=== PATIENT | female | born 1940 | race Caucasian/White ===

== ENCOUNTER 2018-10-20 10:36 | Inpatient (IN) | payer MEDICAID ==
[~2018-10-20] VITALS: Ht 154.9 cm; Wt 53.1 kg
--- NOTE | 2018-10-20 10:54 | NUR ---
WAQAR Wills From [facility] "was eating/cough/aspirated also have fever" Patient transferred to [facility], on o2 satting 95%. IV line established, blood drawn done and sent to lab. Attached to the monitor.
[2018-10-20] MEDS ORDERED: MEMA10TA PO (11:00)
[2018-10-20] MEDS ORDERED: ZINC220C8 PO (11:00)
[2018-10-20] MEDS ORDERED: CALC-7 PO (11:00)
[2018-10-20] MEDS ORDERED: MULT-447 PO (11:00)
[2018-10-20] MEDS ORDERED: BISA10SU11 RC (11:00)
[2018-10-20] MEDS ORDERED: ERGO500014 PO (11:00)
[2018-10-20] MEDS ORDERED: ACET-868 PO (11:00)
[2018-10-20] MEDS ORDERED: NA P133E RC (11:00)
[2018-10-20] MEDS ORDERED: DOCU-141 PO (11:00)
[2018-10-20] MEDS ORDERED: ASCO500T9 PO (11:00)
[2018-10-20] MEDS ORDERED: ACET-2605 PO (11:00)
[2018-10-20] MEDS ORDERED: MAGN400O6 PO ×2 (11:00)
[2018-10-20] MEDS ORDERED: AMIN30LI2 PO (11:00)
[2018-10-20] MEDS ORDERED: RIVA10TA PO (11:00)
[2018-10-20 11:09] LABS: BASOPHILS # (AUTO) 0.2 /CMM (0.0-0.2); BASOPHILS % (AUTO) 1.2 % (0.0-2.0); EOSINOPHILS % (AUTO) 0.5 % (0.0-6.0); HEMATOCRIT 42 % (33-45); HEMOGLOBIN 13.1 g/dL (11.5-14.8); LYMPHOCYTES # (AUTO) 1.8 /CMM (0.8-4.8); LYMPHOCYTES % (AUTO) 14.6 % (20.0-44.0); MEAN CORPUSCULAR HGB CONC 32 g/dl (31.0-36.0); MEAN CORPUSCULAR VOLUME 90 fL (82-100); MONOCYTES # (AUTO) 0.7 /CMM (0.1-1.30); MONOCYTES % (AUTO) 5.2 % (2.0-12.0); NEUTROPHILS # (AUTO) 9.9 /CMM (1.8-8.9); NEUTROPHILS % (AUTO) 78.5 % (43.0-81.0); PLATELET COUNT (AUTO) 316 /CMM (150-450); RED BLOOD CELL COUNT(AUTO) 4.63 MIL/uL (4.0-5.2); WHITE BLOOD COUNT (AUTO) 12.6 K/uL (4.3-11.0)
[2018-10-20 11:10] LABS: APPEARANCE,URINE CLOUDY (CLEAR); BILIRUBIN,URINE Negative (NEGATIVE); BLOOD, URINE Small Ery/uL (NEGATIVE); COLOR,URINE Yellow (YELLOW); KETONES,URINE Negative (NEGATIVE); LEUKOCYTE ESTERASE ,URINE Negative (NEGATIVE); NITRITE, URINE Positive (NEGATIVE); PH,URINE 5.5 (5.0-8.0); PROTEIN,URINE Trace mg/dl (NEGATIVE); UGLUCOSE Negative (NEGATIVE); UROBILINOGEN,URINE 0.2 EU/dL (0.2)
[2018-10-20 11:19] LABS: CALCIUM, SERUM 8.9 mg/dL (8.5-10.1); CARBON DIOXIDE 25 mmol/L (21-32); CHLORIDE 120 mmol/L (98-107); CREATININE 0.8 mg/dL (0.6-1.3); GLUCOSE 159 mg/dL (74-106); SODIUM SERUM 155 mmol/L (136-145); UREA NITROGEN, BLOOD 25 mg/dL (7-18)
[2018-10-20 11:25] LABS: ALANINE AMINOTRANSFERASE 64 U/L (12-78); ALBUMIN 2.3 g/dL (3.4-5.0); ALKALINE PHOSPHATASE 94 U/L (46-116); ASPARTATE AMINOTRANSFERASE 22 U/L (15-37); BILIRUBIN,DIRECT 0.1 mg/dL (0.0-0.2); BILIRUBIN,TOTAL 0.2 mg/dL (0.2-1.0); TOTAL PROTEIN, SERUM 6.5 g/dL (6.4-8.2)
[2018-10-20 11:26] LABS: BACTERIA,URINE 3+ /HPF (None Seen); SQUAMOUS EPITHELIAL CELL,UR Few /HPF (None Seen); WBC,URINE TOO NUMEROUS TO COUN /HPF (0-3)
[2018-10-20] MEDS ORDERED: IV 1/2NS 1000 ML 1,000 ML IV ONE ×2 (11:28→12:28)
[2018-10-20] MEDS ORDERED: IV NS 0.9% 1,000 ML BAG IV ONE (11:30)
--- NOTE | 2018-10-20 11:50 | NUR ---
CALLED HOUSE SUP FOR TELE BED
--- NOTE | 2018-10-20 11:58 | NUR ---
TELE BED 308-
[2018-10-20] MEDS ORDERED: ACETAMINOPHEN 325 MG TABLET PO PRN (12:00)
[2018-10-20] MEDS ORDERED: HYDROCODONE/APAP 5/325MG 1 EACH TABLET PO PRN (12:00)
[2018-10-20] MEDS ORDERED: MAG HYDROX/AL HYDROX/SIMETH 30 ML UDC PO PRN (12:00)
[2018-10-20] MEDS ORDERED: MAGNESIUM HYDROXIDE 30 ML UDC PO PRN (12:00)
[2018-10-20] MEDS ORDERED: MORPHINE SULFATE INJ 2 MG/ML DISP.SYRIN IV PRN (12:00)
[2018-10-20] MEDS ORDERED: ONDANSETRON HCL/PF 4 MG/2 ML VIAL IVP PRN (12:00)
[2018-10-20] MEDS ORDERED: VANCOMYCIN 1 GM in IV D5W 250 ML IV ONE (12:00)
[2018-10-20] MEDS ORDERED: PIPERACILLIN /TAZOBACTAM 3.375 G in IV D5W 50 ML IV ONE (12:00)
[2018-10-20] MEDS ORDERED: TEMAZEPAM 15 MG CAPSULE PO PRN (12:00)
[2018-10-20] MEDS ORDERED: FEE PK DOSING 1 MIN EA MC ONE (12:17)
--- NOTE | 2018-10-20 12:17 | NUR ---
REPORT GIVEN TO REJI PARSONS FOR CARLOS ENRIQUE. JOHN GUILLEN AT BEDSIDE.
--- NOTE | 2018-10-20 12:48 | NUR ---
PATIENT TRANSFERRED TO ROOM 308-2 VIA ACLS PROTOCOL. NO DISTRESS NOTED.
[2018-10-20] MEDS ORDERED: VANCOMYCIN 500 MG in IV D5W 100 ML IV SCH (13:00)
[2018-10-20 13:06] VITALS: BP 100/57
[2018-10-20 13:30] VITALS: BP 100/57
[2018-10-20] MEDS: PIPERACILLIN /TAZOBACTAM 3.375 G in IV D5W 50 ML IV SCH ×2 (14:10→20:00)
--- NOTE | 2018-10-20 14:45 | NUR ---
SOLDER SPRAYERSENIOR CONTROL SYSTEMS ENGINEER NOTES RECEIVED P FROM ER DEPT VIA STRETCHER WITH 2 NURSE ASSIST. PT ON SUPPLEMENTARY OXYGEN AT 2L VIA NC WITH NO ACUTE RESPIRATORY DISTRESS NOTED. PT A/O X1-2, PRIMARY LANGUAGE IS FARSI AND CROATIAN; CAN UNDERSTAND AND RESPOND A LITTLE PORTUGUESE. PT ON TELEMONITORING WITH SR 91. DAUGHTER/ILYA PRESENT AT BEDSIDE. PT AND DAUGHTER PROVIDED INFORMATION ON ADMISSION. VS TAKEN AND RECORDED STABLE. PIV TO RIGHT HAND AND LEFT WRIST G18, BOTH FLUSHED WITH NS, INTACT AND OPERATIONAL. RECEIVED PT EARLIER HAS ONGOING VANCO TO R HAND, NO INFILTRATION NOTED. SKIN ASSESSED, INTACT. RFA HAS A KELOID/REDDISH SCAR, WOUND CONSULT PLACED. ADMISSION ORDERS PLACED BY HOSPITALIST/NN. PT KEPT COMFORTABLE. PT'S BED IN LOWEST, LOCKED POSITION WITH SR X3. WILL CONTINUE PLAN OF CARE.
[2018-10-20] MEDS: IV NS 0.9% 1,000 ML IV PRN (15:17)
--- NOTE | 2018-10-20 15:20 | NUR ---
WOODWORKER NOTES RECEIVED CALL FROM LAB REGARDING CH LACTIC ACID OF 3.1. ADMITTING HOSPITALIST/DNP/NN MADE AWARE, WITH NO NEW ORDERS NOTED. PT ON NS AT 100ML/HR. WILL CONTINUE TO MONITOR.
[2018-10-20 16:10] VITALS: BP 102/62
[2018-10-20] MEDS: LACTOBACILLUS RHAMNOSUS GG 1 EACH CAP.SPRINK PO SCH (16:57)
--- NOTE | 2018-10-20 18:35 | NUR ---
PRIOR AUTHORIZATION NURSE CLOSING NOTES PT A/O X1-2, PRIMARY LANGUAGE IS FARSI AND PALAUAN; CAN UNDERSTAND AND RESPOND A LITTLE WELSH. PT ON SUPPLEMENTARY OXYGEN AT 2L VIA NC WITH NO ACUTE RESPIRATORY DISTRESS NOTED. PT ON TELEMONITORING WITH ST 103, PT CALM AND ASYMPTOMATIC, DAUGHTER AT BEDSIDE. IVF NS AT 100ML/HR TO RIGHT HAND, INTACT AND INFUSING WELL. PIV TO LEFT WRIST G18, FLUSHED WITH NS, INTACT AND OPERATIONAL. PT KEPT COMFORTABLE. ALL NEEDS AND CARE PROVIDED. PT'S BED IN LOWEST, LOCKED POSITION WITH SR X3. WILL ENDORSE TO INCOMING ARCHITECTURAL EXAMINER FOR CARLOS ENRIQUE.
--- NOTE | 2018-10-20 19:31 | NUR ---
TELE/RN OPENING NOTES RECEIVED PATIETN IN BED, RESTING IN BED, RESPIRATIONS EVEN AND UNLABORED, SKIN WARM TO TOUCH, ON OXYGEN VIA NC AT 2L. RECEIVED ENDORSEMENT FROM AM RN FOR CARLOS ENRIQUE. IV INFUSING IVF AT 100 CC/HR, IV SITE ON LEFT WRIST, BED LOCKED, CALL LIGHTS WITHIN REACH. WILL MONITOR. TELE MONITOR READING AT [facility]
[2018-10-20 19:44] VITALS: BP 101/59
[2018-10-20 20:00] VITALS: BP 101/59
[2018-10-20] MEDS: FAMOTIDINE/PF INJ 20 MG/2 ML VIAL IV SCH (20:59)
[2018-10-21] VITALS: BP 119/66
--- NOTE | 2018-10-21 | NUR ---
tele/rn notes PATIENTEMPERATURE ELEVATED AT 99.9 DEG F, EILL MONITOR, TYLENOL 650 MG PO GIVEN WILL MONITOR, ICE COMPRESS PROVIDED,OFFED FLUIDS. WILL MONITOR.
[2018-10-21] MEDS: VANCOMYCIN 500 MG in IV D5W 100 ML IV SCH ×2 (00:04→13:11)
[2018-10-21] MEDS: PIPERACILLIN /TAZOBACTAM 3.375 G in IV D5W 50 ML IV SCH ×4 (01:07→20:12)
--- NOTE | 2018-10-21 01:26 | NUR ---
TELE/RN NOTES PULSE RATE AT 87, FOLLOW UP HOME MEDICATION TO MD FOR DEMENTIA AND OTHER MEDICATIONS,WILL FOLLOW UO
[2018-10-21 04:00] VITALS: BP 127/78
[2018-10-21] MEDS: IV NS 0.9% 1,000 ML IV PRN ×2 (04:18→16:28)
--- NOTE | 2018-10-21 04:27 | NUR ---
MS/RN NOTES PATIENT LATST TEMPERATURE AT 98, 4 DEG F, RESTING COMFORTABLY IN BED, NO FEVER.
--- NOTE | 2018-10-21 05:17 | NUR ---
MS/RN NOTES MD ARITA WAS MADE AWARE THAT PATIENT MEDICATION WERE REPORTED BUT HAS NOT BEEN RECONCILED UPON ADMISSION WITH ORDER TO FOLLOW UP IN MORNING.
[2018-10-21 06:24] LABS: BASOPHILS % (AUTO) 0.4 % (0.0-2.0); EOSINOPHILS % (AUTO) 2.3 % (0.0-6.0); HEMATOCRIT 37 % (33-45); HEMOGLOBIN 11.8 g/dL (11.5-14.8); LYMPHOCYTES # (AUTO) 2.4 /CMM (0.8-4.8); LYMPHOCYTES % (AUTO) 20.3 % (20.0-44.0); MEAN CORPUSCULAR HGB CONC 32 g/dl (31.0-36.0); MEAN CORPUSCULAR VOLUME 90 fL (82-100); MONOCYTES # (AUTO) 0.6 /CMM (0.1-1.30); MONOCYTES % (AUTO) 5.2 % (2.0-12.0); NEUTROPHILS # (AUTO) 8.4 /CMM (1.8-8.9); NEUTROPHILS % (AUTO) 71.8 % (43.0-81.0); PLATELET COUNT (AUTO) 205 /CMM (150-450); RED BLOOD CELL COUNT(AUTO) 4.17 MIL/uL (4.0-5.2); WHITE BLOOD COUNT (AUTO) 11.7 K/uL (4.3-11.0)
--- NOTE | 2018-10-21 06:30 | NUR ---
TELE/RN NOTES PATIENT SLEPT FEW HOURS, ON OXYGEN VIA NASAL CANULA WITH [employer] CONTACT, SPEAKS PORTUGUESE, FAMILY INVOLVE, RESPIRATIONS EVEN AND UNLABORED ,WILL ENDORSE TO AM RN FOR CARLOS ENRIQUE. BED LOCKED, CALL LIGHTS WITHIN CARITO WILL MONITOR.IV SITE ON RIGHT HAND WITH NO S/S OF INFILTRATION. NO GUARDING OR GRIMACE.
[2018-10-21 06:49] LABS: CALCIUM, SERUM 8.3 mg/dL (8.5-10.1); CREATININE 0.7 mg/dL (0.6-1.3); MAGNESIUM 1.9 mg/dL (1.8-2.4); PHOSPHORUS 3.4 mg/dL (2.5-4.9); POTASSIUM 3.5 mmol/L (3.5-5.1)
--- NOTE | 2018-10-21 07:29 | NUR ---
PROGRAMMING COORDINATOR OPENING NOTES Patient received on nasal cannula 2L o2, no sob noted, n os/s of pain. Patient remains on telemetry at this time with SR 80's. Right hand IV 20 with IV NS 100 mL per hour infusing. Bed at the lowest setting, call light within reach.
[2018-10-21 08:00] VITALS: BP 136/82
[2018-10-21] MEDS: FAMOTIDINE/PF INJ 20 MG/2 ML VIAL IV SCH ×2 (08:46→20:12)
[2018-10-21] MEDS: LACTOBACILLUS RHAMNOSUS GG 1 EACH CAP.SPRINK PO SCH ×2 (08:47→17:08)
[2018-10-21] MEDS ORDERED: BISACODYL SUPP (10 MG) 10 MG/SUPP.RECT SUPP.RECT RC PRN (11:30)
[2018-10-21] MEDS ORDERED: NA PHOS,M-B/NA PHOS,DI-BA 1 EA ENEMA RC PRN (11:30)
[2018-10-21] MEDS: DOCUSATE SODIUM 100 MG CAPSULE PO SCH (11:52)
[2018-10-21] MEDS: ASCORBIC ACID 500 MG TABLET PO SCH (11:52)
--- NOTE | 2018-10-21 15:14 | NUR ---
RN NOTES Report given to Ade MONACO
[2018-10-21 16:00] VITALS: BP 139/78
[2018-10-21] MEDS: MEMANTINE HCL 5 MG TABLET PO SCH (17:08)
[2018-10-21] MEDS: CALCIUM CARB 250MG /VITAMIN D 1 UDTAB PO SCH (17:08)
[2018-10-21] MEDS: RIVAROXABAN 10 MG TABLET PO SCH (17:09)
--- NOTE | 2018-10-21 18:50 | NUR ---
M/S RN NOTES PATIENT AWAKE, LYING IN BED, NO RESPIRATORY DISTRESS NOTED, ON NASAL CANULA O2 AT 2L. PATIENT WITH NO C/O PAIN. PATIENT ON IV NS RUNNING AT 100ML/HR ON THE RT HAND, INTACT AND PATENT. PATIENT'S NEEDS ATTENDED. BED ON LOWEST LOCKED POSITION, CALL LIGHT WITHIN REACH. WILL ENDORSE TO ONCOMING NURSE.
--- NOTE | 2018-10-21 19:52 | NUR ---
RN MS OPENING NOTES RECEIVED PATIENT IN BED AWAKE. NOT ANSWERING QUESTIONS. ONLY STARES. BREATHING EVEN AND UNLABORED. NO SOB NOTED. ON 2LPM VIA NC. NO S/S OF PAIN OR DISCOMFORT. NO FACIAL GRIMACING. IV ON RIGHT HAND INTACT AND PATENT WITH IVF INFUSING. SKIN DRY AND WARM TO TOUCH. AFEBRILE. ALL OTHER NEEDS ATTENDED TO. SAFETY MEASURES IN PLACE. CALL LIGHT WITHIN REACH. WILL CONTINUE TO MONITOR.
[2018-10-21 20:00] VITALS: BP 146/73
--- NOTE | 2018-10-21 21:31 | NUR ---
RN MS NOTES SPOKE WITH DAUGHTERS BERLIN AND TIA, AND PER DAUGHTERS, THEY WOULD LIKE PATIENT TO BE FULL CODE AND NOT DNI/DNR, BUT THE ONLY THING THEY DON'T WANT IS A FEEDING TUBE. INFORMED DAUGHTERS THAT WE CAN CONSULT A WHEEL MILL OPERATOR FOR A NEW POLST FORM TO INDICATE FULL CODE - DAUGHTERS AGREED. CODE STATUS CHANGED TO FULL CODE WITH ANOTHER RN VERIFICATION. ORDER FOR WHEEL MILL OPERATOR CONSULT NOTED AND CARRIED OUT.
[2018-10-21] MEDS: VANCOMYCIN 0.75 GM in IV D5W 250 ML IV SCH (23:54)
[2018-10-22] MEDS: PIPERACILLIN /TAZOBACTAM 3.375 G in IV D5W 50 ML IV SCH ×4 (02:16→20:17)
[2018-10-22] MEDS: IV NS 0.9% 1,000 ML IV PRN ×2 (04:22→21:31)
[2018-10-22 06:41] LABS: BASOPHILS % (AUTO) 0.5 % (0.0-2.0); CALCIUM, SERUM 8.3 mg/dL (8.5-10.1); CREATININE 0.6 mg/dL (0.6-1.3); EOSINOPHILS % (AUTO) 3.6 % (0.0-6.0); HEMATOCRIT 34 % (33-45); LYMPHOCYTES # (AUTO) 1.6 /CMM (0.8-4.8); LYMPHOCYTES % (AUTO) 16.3 % (20.0-44.0); MEAN CORPUSCULAR HGB CONC 32 g/dl (31.0-36.0); MEAN CORPUSCULAR VOLUME 89 fL (82-100); MONOCYTES # (AUTO) 0.6 /CMM (0.1-1.30); MONOCYTES % (AUTO) 6.4 % (2.0-12.0); NEUTROPHILS # (AUTO) 7.3 /CMM (1.8-8.9); NEUTROPHILS % (AUTO) 73.2 % (43.0-81.0); PLATELET COUNT (AUTO) 191 /CMM (150-450); RED BLOOD CELL COUNT(AUTO) 3.84 MIL/uL (4.0-5.2); WHITE BLOOD COUNT (AUTO) 9.9 K/uL (4.3-11.0)
[2018-10-22 06:45] LABS: POTASSIUM 2.8 mmol/L (3.5-5.1)
--- NOTE | 2018-10-22 06:45 | NUR ---
RN MS NOTES RECEIVED POTASSIUM LEVEL OF 2.8. PREVIOUS RESULT WAS 3.5. PAGED DR. ARITA. WAITING FOR CALL BACK. WILL CONTINUE TO MONITOR.
--- NOTE | 2018-10-22 06:51 | NUR ---
RN MS NOTES DR. ARITA PAGED BACK AND MADE AWARE OF POTASSIUM RESULT. PER DR. ARITA, IT WAS A BIG JUMP FROM 3.5 TO 2.8 WITH ORDERS TO CHECK POTASSIUM LEVEL AGAIN. ORDER NOTED AND CARRIED OUT.
--- NOTE | 2018-10-22 07:36 | NUR ---
RN MS CLOSING NOTES PATIENT RESTING IN BED. NO ACUTE CHANGES THROUGHOUT SHIFT. BREATHING EVEN AND UNLABORED. NO SOB NOTED. ON 2LPM VIA NC. NO S/S OF PAIN OR DISCOMFORT. NO FACIAL GRIMACING. IV ON RIGHT HAND INTACT AND PATENT WITH IVF INFUSING. KEPT CLEAN DRY AND COMFORTABLE. ENDORSED TO DAY NURSE REGARDING POTASSIUM LEVEL AND MD'S ORDER. ALL OTHER NEEDS ATTENDED TO. KEPT CLEAN DRY AND COMFORTABLE. SAFETY MEASURES IN PLACE. CALL LIGHT WITHIN REACH. WILL ENDORSE TO ONCOMING NURSE FOR CARLOS ENRIQUE.
--- NOTE | 2018-10-22 07:44 | NUR ---
MS RN OPENING NOTES RECEIVED PATIENT IN BED AWAKE WITH NO S/S OF DISTRESS OBSERVED. BREATHING REGULAR AND UNLABORED, NO SOB WITH OXYGEN AT 2L/MIN VIA NASAL CANNULA. MAINTAINED ON ASPIRATION PRECAUTION WITH HEAD OF THE BED ELEVATED. IV LINES ON LEFT AND RIGHT HAND G18 PATENT AND INTACT WITH NO BLEEDING AND S/S OF INFILTRATION/INFECTION NOTED, LEFT IV LINE INFUSING WELL. WILL FOLLOW-UP LATEST POTASSIUM LEVEL, WOUND CONSULT AND BIG DATA ENGINEER REGARDING CHANGE IN POLST. CALL LIGHT WITHIN REACH, BED LOW AND LOCKED. KEPT CLEAN AND DRY. CONTINUOUSLY MONITORED.
[2018-10-22 08:00] VITALS: BP 140/70
--- NOTE | 2018-10-22 09:00 | NUR ---
MS RN NOTES SEEN BY WITH ORDERS TO START POTASSIUM 20mEQ TABLET BY MOUTH GIVE EVERY HOUR [id number] NOTED AND CARRIED OUT.
[2018-10-22] MEDS: ZINC SULFATE 220 MG CAPSULE PO SCH (09:27)
[2018-10-22] MEDS: DOCUSATE SODIUM 100 MG CAPSULE PO SCH (09:27)
[2018-10-22] MEDS: LACTOBACILLUS RHAMNOSUS GG 1 EACH CAP.SPRINK PO SCH ×2 (09:27→16:53)
[2018-10-22] MEDS: CALCIUM CARB 250MG /VITAMIN D 1 UDTAB PO SCH ×2 (09:27→16:53)
[2018-10-22] MEDS: MEMANTINE HCL 5 MG TABLET PO SCH ×2 (09:27→16:53)
[2018-10-22] MEDS: ASCORBIC ACID 500 MG TABLET PO SCH (09:27)
[2018-10-22] MEDS: FAMOTIDINE/PF INJ 20 MG/2 ML VIAL IV SCH ×2 (09:27→21:01)
[2018-10-22] MEDS: MULTIVITAMINS,THERAGRAN 1 UDTAB TABLET PO SCH (09:27)
[2018-10-22] MEDS: PROSOURCE / PROSTAT (PYXIS) 30 ML UDC PO SCH (09:28)
[2018-10-22] MEDS: POTASSIUM CHLORIDE 20 MEQ TAB.PRT.SR PO SCH ×3 (09:28→11:38)
--- NOTE | 2018-10-22 10:10 | NUR ---
WOUND CARE CONSULT: PT PRESENTS WITH DEEP TISSUE INJURIES (INTACT) TO RT FOOT AND HEEL, REDNESS TO LEFT LATERAL ANKLE, PRESENT ON ADMISSION. RECOMMEND DPM CONSULT. DR LINCOLN AWARE OF CONSULT REQUEST. ALL SKIN PROTECTION RECOMMENDATIONS MADE AND DISCUSSED WITH NURSING STAFF. WILL SEE PRN. EUGENE IN AGREEMENT WITH PLAN OF CARE. Addendum: 10/22/18 at 1013 by RIANA MARLEY WNDNU Amended: Links added.
[2018-10-22] MEDS ORDERED: Z GUARD REMEDY 2 OZ OINT TP PRN (10:30)
[2018-10-22] MEDS: VANCOMYCIN 0.75 GM in IV D5W 250 ML IV SCH ×2 (11:09→22:26)
[2018-10-22] MEDS: Z GUARD REMEDY 2 OZ OINT TP SCH (11:09)
[2018-10-22 16:00] VITALS: BP 128/75
[2018-10-22] MEDS: RIVAROXABAN 10 MG TABLET PO SCH (16:55)
--- NOTE | 2018-10-22 18:56 | NUR ---
MS RN CLOSING NOTES PATIENT IN BED AWAKE, NON-VERBAL. AFEBRILE WTIH NO S/S OF DISTRESS OBSERVED. BREATHING REGULAR AND UNLABORED WITH OXYGEN AT 2L/MIN VIA NASAL CANNULA, LATEST SPO2 97%. MAINTAINED ON SEMI FOWLERS POSITION WITH BED LOW AND LOCKED. NO S/S OF PAIN/DISCOMFORT SEEN WITHIN THE SHIFT. CONTINOUSLY MONITORED FOR S/S OF HYPO/HYPERKALEMIA WITH NO MUSCLE TWITCHING OR EPISODE OF NAUSE/VOMOTING NOTED. NEW IV LINE REINSERTED IN LEFT FOREARM G20, INFUSING WELL. SEEN BY WOUND CARE NURSE, REPOSITIONED EVERY 2HRS. KEPT CLEAN AND DRY. WILL ENDORSE TO NOC SHIFT FOR CONTINUITY OF CARE.
--- NOTE | 2018-10-22 19:38 | NUR ---
RN MS OPENING NOTES RECEIVED PATIENT IN BED AWAKE. NONVERBAL. ONLY STARES. BREATHING EVEN AND UNLABORED. NO SOB NOTED. ON 2LPM VIA NC. NO S/S OF PAIN OR DISCOMFORT. NO FACIAL GRIMACING. IV ON LEFT FOREARM INTACT AND PATENT WITH IVF INFUSING. SKIN DRY AND WARM TO TOUCH. AFEBRILE. ALL OTHER NEEDS ATTENDED TO. SAFETY MEASURES IN PLACE. CALL LIGHT WITHIN REACH. WILL CONTINUE TO MONITOR.
[2018-10-22 20:48] VITALS: BP 118/77
--- NOTE | 2018-10-22 22:52 | NUR ---
TRANSFER OF CARE RECEIVED PATIENT FROM JAQUELINE SAHNI AT 2251. PATIENT IS ASLEEP, RESTING COMFORTABLY EASILY AROUSABLE TO VOICE. ON O2 LPM VIA NASAL CANNULA. NO SIGNS OF RESPIRATORY DISTRESS. NO SIGNS OF SHORTNESS OF BREATH. MAINTAINING SEMI FOWLERS POSITION. NO SIGNS OF FACIAL GRIMACING INDICATING PAIN OR DISCOMFORT AT THIS TIME. NO SIGNS OF HYPOKALEMIA NOTED. IV SITE LFA #20G INTACT AND PATENT, INFUSING WELL. WILL REPOSITION EVERY 2 HOURS. SAFETY PRECAUTIONS IMPLEMENTED; CALL LIGHT WITHIN REACH, BED LOWEST POSITION, BED LOCKED, SIDE RAILS UP X2. WILL CONTINUE TO MONITOR.
--- NOTE | 2018-10-22 22:58 | NUR ---
RN MS NOTES CARLOS ENRIQUE GIVEN TO JAQUELINE OLIVEIRA. PATIENT RESTING IN BED. IN NO DISTRESS. SAFETY MEASURES IN PLACE. CALL LIGHT WITHIN REACH.
[2018-10-23] MEDS: PIPERACILLIN /TAZOBACTAM 3.375 G in IV D5W 50 ML IV SCH ×3 (01:53→15:32)
[2018-10-23 06:10] LABS: BASOPHILS % (AUTO) 0.4 % (0.0-2.0); EOSINOPHILS % (AUTO) 3.8 % (0.0-6.0); HEMATOCRIT 32 % (33-45); HEMOGLOBIN 10.8 g/dL (11.5-14.8); LYMPHOCYTES # (AUTO) 1.7 /CMM (0.8-4.8); LYMPHOCYTES % (AUTO) 25.4 % (20.0-44.0); MEAN CORPUSCULAR HGB CONC 33 g/dl (31.0-36.0); MEAN CORPUSCULAR VOLUME 87 fL (82-100); MONOCYTES # (AUTO) 0.6 /CMM (0.1-1.30); MONOCYTES % (AUTO) 8.2 % (2.0-12.0); NEUTROPHILS # (AUTO) 4.3 /CMM (1.8-8.9); NEUTROPHILS % (AUTO) 62.2 % (43.0-81.0); PLATELET COUNT (AUTO) 184 /CMM (150-450); RED BLOOD CELL COUNT(AUTO) 3.74 MIL/uL (4.0-5.2); WHITE BLOOD COUNT (AUTO) 6.8 K/uL (4.3-11.0)
[2018-10-23 06:21] LABS: CALCIUM, SERUM 8.5 mg/dL (8.5-10.1); CARBON DIOXIDE 26 mmol/L (21-32); CHLORIDE 110 mmol/L (98-107); CREATININE 0.5 mg/dL (0.6-1.3); GLUCOSE 95 mg/dL (74-106); MAGNESIUM 1.9 mg/dL (1.8-2.4); PHOSPHORUS 2.9 mg/dL (2.5-4.9); POTASSIUM 3.1 mmol/L (3.5-5.1); SODIUM SERUM 146 mmol/L (136-145); UREA NITROGEN, BLOOD 5 mg/dL (7-18)
--- NOTE | 2018-10-23 06:56 | NUR ---
RN CLOSING NOTES PATIENT CURRENTLY RESTING IN BED, COMFORTABLY. NO ACUTE CHANGES SINCE TRANSFER OF CARE. NO SIGNS OF RESPIRATORY DISTRESS. NO SHORTNESS OF BREATH NOTED. PATIENT REMAINS ON 2LPM O2 VIA NASAL CANNULA. NO SIGNS OF FACIAL GRIMACING INDICATING PAIN OR DISCOMFORT AT THIS TIME. AFEBRILE. IV SITE LEFT FOREARM #20G INTACT AND PATENT WITH IVF INFUSING WELL. PATIENT KEPT CLEAN, DRY AND COMFORTABLE. PATIENT TURNED EVERY 2 HOURS. ALL NEEDS ATTENDED TO AT THIS TIME. SAFETY PRECAUTIONS IMPLEMENTED; CALL LIGHT WITHIN REACH, BED LOWEST POSITION, BED LOCKED, SIDE RAILS UP X2. WILL ENDORSE TO DAY NURSE FOR CONTINUITY OF CARE.
--- NOTE | 2018-10-23 07:35 | NUR ---
MS RN OPENING NOTES RECEIVED PATIENT IN BED AWAKE WITH NO S/S OF DISTRESS OBSERVED. BREATHING REGULAR AND UNLABORED, NO SOB WITH OXYGEN AT 2L/MIN VIA NASAL CANNULA. MAINTAINED ON ASPIRATION PRECAUTION WITH HEAD OF THE BED ELEVATED. IV LINES ON LEFT FOREARM INTACT AND PATENT WITH NO BLEEDING AND S/S OF INFILTRATION/INFECTION NOTED, INFUSING WELL. WILL FOLLOW-UP LATEST POTASSIUM LEVEL. CALL LIGHT WITHIN REACH, BED LOW AND LOCKED. KEPT CLEAN AND DRY. CONTINUOUSLY MONITORED.
[2018-10-23 08:00] VITALS: BP 120/69
[2018-10-23] MEDS ORDERED: POTASSIUM CHLORIDE 20 MEQ TAB.PRT.SR PO ONE (08:30)
[2018-10-23] MEDS: MULTIVITAMINS,THERAGRAN 1 UDTAB TABLET PO SCH (08:30)
[2018-10-23] MEDS: FAMOTIDINE/PF INJ 20 MG/2 ML VIAL IV SCH ×2 (08:30→20:19)
[2018-10-23] MEDS: CALCIUM CARB 250MG /VITAMIN D 1 UDTAB PO SCH ×2 (08:31→16:39)
[2018-10-23] MEDS: ZINC SULFATE 220 MG CAPSULE PO SCH (08:31)
[2018-10-23] MEDS: MEMANTINE HCL 5 MG TABLET PO SCH ×2 (08:31→16:39)
[2018-10-23] MEDS: LACTOBACILLUS RHAMNOSUS GG 1 EACH CAP.SPRINK PO SCH ×2 (08:31→16:38)
[2018-10-23] MEDS: ASCORBIC ACID 500 MG TABLET PO SCH (08:31)
[2018-10-23] MEDS: PROSOURCE / PROSTAT (PYXIS) 30 ML UDC PO SCH (08:33)
[2018-10-23] MEDS: Z GUARD REMEDY 2 OZ OINT TP SCH (08:33)
[2018-10-23] MEDS: DOCUSATE SODIUM 100 MG CAPSULE PO SCH (08:33)
[2018-10-23] MEDS: VANCOMYCIN 0.75 GM in IV D5W 250 ML IV SCH ×2 (11:23→22:52)
[2018-10-23] MEDS: IV NS 0.9% 1,000 ML IV PRN (13:04)
[2018-10-23 16:00] VITALS: BP 117/58
[2018-10-23] MEDS: RIVAROXABAN 10 MG TABLET PO SCH (16:38)
--- NOTE | 2018-10-23 18:34 | NUR ---
MS RN CLOSING NOTES PATIENT IN BED AWAKE, NON-VERBAL. AFEBRILE WITH NO S/S OF DISTRESS OBSERVED. BREATHING REGULAR AND UNLABORED WITH LATEST SPO2 98%. MAINTAINED ON SEMI FOWLERS POSITION WITH BED LOW AND LOCKED. NO S/S OF PAIN/DISCOMFORT SEEN WITHIN THE SHIFT. CONTINUOUSLY MONITORED FOR S/S OF HYPO/HYPERKALEMIA WITH NO MUSCLE TWITCHING OR EPISODE OF NAUSEA/VOMITING NOTED. IV LINE ON LEFT FOREARM G20, INFUSING WELL. REPOSITIONED EVERY 2HRS. KEPT CLEAN AND DRY. WILL ENDORSE TO NOC SHIFT FOR CONTINUITY OF CARE.
--- NOTE | 2018-10-23 19:15 | NUR ---
MS RN NOTES RECEIVED PT IN BED AWAKE AND NON-VERBAL WITH FAMILY AT BEDSIDE. RESPIRATIONS EVEN AND UNLABORED WITH NO S/S OF ACUTE DISTRESS OR SOB NOTED. NO S/S OF PAIN NOTED AT THIS TIME. PT WITH LFA #20G RUNNING NS@100ML/HR, TOLERATING WELL. SAFETY MEASURES IN PLACE WITH BED IN LOWEST LOCKED POSITION WITH SIDE RAILS UP X2. CALL LIGHT WITHIN REACH. WILL CONTINUE TO MONITOR.
[2018-10-23 20:00] VITALS: BP 121/60
[2018-10-23] MEDS: CEPHALEXIN MONOHYDRATE 250 MG CAPSULE PO SCH (20:19)
[2018-10-24] MEDS: IV NS 0.9% 1,000 ML IV PRN ×2 (01:12→12:01)
[2018-10-24] MEDS: CEPHALEXIN MONOHYDRATE 250 MG CAPSULE PO SCH ×3 (05:12→20:47)
--- NOTE | 2018-10-24 07:30 | NUR ---
MS RN NOTES PT IN BED AWAKE AND NON-VERBAL. RESPIRATIONS EVEN AND UNLABORED WITH NO S/S OF ACUTE DISTRESS OR SOB NOTED THROUGHOUT SHIFT. NO S/S OF PAIN NOTED AT THIS TIME. PT KEPT CLEAN, DRY, AND COMFORTABLE. TURNED PT Q2 HRS THROUGHOUT SHIFT. PT WITH LFA #20G RUNNING NS@100ML/HR, TOLERATING WELL. SAFETY MEASURES IN PLACE WITH BED IN LOWEST LOCKED POSITION WITH SIDE RAILS UP X2. CALL LIGHT WITHIN REACH. WILL ENDORSE TO ONCOMING NURSE FOR CARLOS ENRIQUE.
--- NOTE | 2018-10-24 07:30 | NUR ---
RN MS NOTES PT IN BED, AWAKE, ALERT, NO SIGN OF PAIN OR DISTRESS, CALL LIGHT WITHIN REACH, ASSISTED WITH MEALS, KEPT WARM AND COMFORTABLE IN BED.
[2018-10-24 07:39] LABS: CALCIUM, SERUM 7.7 mg/dL (8.5-10.1); CARBON DIOXIDE 24 mmol/L (21-32); CHLORIDE 109 mmol/L (98-107); CREATININE 0.5 mg/dL (0.6-1.3); GLUCOSE 110 mg/dL (74-106); POTASSIUM 3.2 mmol/L (3.5-5.1); SODIUM SERUM 143 mmol/L (136-145); UREA NITROGEN, BLOOD 5 mg/dL (7-18)
[2018-10-24 08:00] VITALS: BP 114/76
[2018-10-24] MEDS: ASCORBIC ACID 500 MG TABLET PO SCH (08:42)
[2018-10-24] MEDS: MEMANTINE HCL 5 MG TABLET PO SCH ×2 (08:42→16:47)
[2018-10-24] MEDS: LACTOBACILLUS RHAMNOSUS GG 1 EACH CAP.SPRINK PO SCH ×2 (08:42→16:46)
[2018-10-24] MEDS: ZINC SULFATE 220 MG CAPSULE PO SCH (08:42)
[2018-10-24] MEDS: FAMOTIDINE/PF INJ 20 MG/2 ML VIAL IV SCH ×2 (08:42→20:47)
[2018-10-24] MEDS: MULTIVITAMINS,THERAGRAN 1 UDTAB TABLET PO SCH (08:42)
[2018-10-24] MEDS: DOCUSATE SODIUM 100 MG CAPSULE PO SCH (08:42)
[2018-10-24] MEDS: CALCIUM CARB 250MG /VITAMIN D 1 UDTAB PO SCH ×2 (08:42→16:47)
[2018-10-24] MEDS: Z GUARD REMEDY 2 OZ OINT TP SCH (08:47)
[2018-10-24] MEDS: PROSOURCE / PROSTAT (PYXIS) 30 ML UDC PO SCH (08:47)
[2018-10-24] MEDS ORDERED: ERGOCALCIFEROL (VITAMIN D 2) 50,000 UNIT CAPSULE PO SCH (11:30)
[2018-10-24] MEDS: VANCOMYCIN 0.75 GM in IV D5W 250 ML IV SCH ×2 (12:01→23:06)
[2018-10-24] MEDS: POTASSIUM CHLORIDE 20 MEQ TAB.PRT.SR PO SCH ×2 (12:02→13:17)
--- NOTE | 2018-10-24 13:00 | NUR ---
RN MS NOTES PT IN BED, AWAKE, FAMILY AT BEDSIDE, ASSISTED WITH MEALS, SEEN BY DR. WILKINSON, PLAN OF CARE DISCUSSED WITH FAMILY, VERBALIZED UNDERSTANDING, KEPT SKIN CLEAN AND DRY, TURNED AND REPOSITIONED Q2 HOURS, KEPT CLEAN AND COMFORTABLE.
[2018-10-24 16:00] VITALS: BP 114/76
[2018-10-24] MEDS: RIVAROXABAN 10 MG TABLET PO SCH (16:48)
--- NOTE | 2018-10-24 18:38 | NUR ---
RN MS NOTES PT IN BED, RESTING, NO SIGN OF PAIN OR DISTRESS, IV FLUIDS INFUSING WELL, PM CARE PROVIDED, SKIN TREATMENTS DONE, TURNED AND REPOSITIONED Q2 HOURS, ALL NEEDS ATTENDED.
--- NOTE | 2018-10-24 19:30 | NUR ---
RECEIVED PATIENT IN BED AWAKE, ALERT, NON-VERBAL. NO ACUTE DISTRESS NOTED. NO SIGNS OF PAIN NOTED. IV SITE PATENT, INTACT; IVF INFUSING ORDERED. ON LOW BED WITH BILATERAL UPPER SIDE RAILS UP. CALL SINGH WITHIN EASY REACH. WILL CONTINUE TO MONITOR.
[2018-10-24 20:00] VITALS: BP 140/82
--- NOTE | 2018-10-24 21:40 | NUR ---
MS RN NOTES RECEIVED REPORT FOR RVI,PATIENT RESTING COMFORTABLY ON BED,NONE VERBAL, BREATHING REGULAR,NOT IN ANY FORM OF DISTRESS.IVF NS AT 100ML/HR RATE ON LFA.FALL RISK,BED ON LOWEST POSITION AND LOCKED.WILL CONTINUE TO MONITOR STATUS.
--- NOTE | 2018-10-24 21:40 | NUR ---
REPORT GIVEN TO MIMI PARSONS FOR CONTINUITY OF CARE.
--- NOTE | 2018-10-24 23:00 | NUR ---
MS RN NOTES VANCOMYCIN IV HUNG,INFUSING AT THIS TIME VIA IVPB
[2018-10-25] MEDS: CEPHALEXIN MONOHYDRATE 250 MG CAPSULE PO SCH ×2 (05:10→13:06)
[2018-10-25] MEDS: IV NS 0.9% 1,000 ML IV PRN (05:20)
--- NOTE | 2018-10-25 06:32 | NUR ---
MS RN NOTES SLEPT WELL AT NIGHT.IV SITE REMAINS PATENT.REPOSITION PER PROTOCOL.IN NO ACUTE DISTRESS.POSSIBLE D/C TO [facility],AWAITING BLOOD CULTURE RESULT.WILL ENDORSE TO DAY NURSE FOR CARLOS ENRIQUE.
[2018-10-25 06:39] LABS: CALCIUM, SERUM 8.4 mg/dL (8.5-10.1); CARBON DIOXIDE 24 mmol/L (21-32); CHLORIDE 109 mmol/L (98-107); CREATININE 0.5 mg/dL (0.6-1.3); GLUCOSE 95 mg/dL (74-106); POTASSIUM 3.5 mmol/L (3.5-5.1); SODIUM SERUM 143 mmol/L (136-145); UREA NITROGEN, BLOOD 4 mg/dL (7-18)
[2018-10-25 07:00] VITALS: BP 163/82
[2018-10-25] MEDS ORDERED: CEPH250C PO (07:42)
--- NOTE | 2018-10-25 07:49 | NUR ---
MS RN NOTES RECEIVED PATIENT IN BED IN MODERATE HIGH BACK REST. AWAKE BUT NON VERBAL. NO ACUTE DISTRESS NOTED. IVF ON RIGHT HAND #22 WITH NS @ 100ML/HR. PATENT AND INTACT. SAFETY MEASURES IN PLACE. BED IN LOW LOCKED POSITION WITH SIDE RAILS UP X 2. CALL LIGHT WITHIN EASY REACH. WILL CONTINUE TO MONITOR.
[2018-10-25] MEDS: MULTIVITAMINS,THERAGRAN 1 UDTAB TABLET PO SCH (08:29)
[2018-10-25] MEDS: FAMOTIDINE/PF INJ 20 MG/2 ML VIAL IV SCH (08:29)
[2018-10-25] MEDS: ZINC SULFATE 220 MG CAPSULE PO SCH (08:29)
[2018-10-25] MEDS: LACTOBACILLUS RHAMNOSUS GG 1 EACH CAP.SPRINK PO SCH (08:29)
[2018-10-25] MEDS: ASCORBIC ACID 500 MG TABLET PO SCH (08:29)
[2018-10-25] MEDS: CALCIUM CARB 250MG /VITAMIN D 1 UDTAB PO SCH (08:30)
[2018-10-25] MEDS: DOCUSATE SODIUM 100 MG CAPSULE PO SCH (08:30)
[2018-10-25] MEDS: MEMANTINE HCL 5 MG TABLET PO SCH (08:30)
[2018-10-25] MEDS: PROSOURCE / PROSTAT (PYXIS) 30 ML UDC PO SCH (08:30)
[2018-10-25] MEDS: Z GUARD REMEDY 2 OZ OINT TP SCH (09:03)
[2018-10-25] MEDS: VANCOMYCIN 0.75 GM in IV D5W 250 ML IV SCH (11:47)
--- NOTE | 2018-10-25 12:05 | NUR ---
RN NOTES REPORT GIVEN TO JAQUELINE DUNHAM REGARDING PATIENT DISCHARGED TO THEIR SNF.
--- NOTE | 2018-10-25 14:45 | NUR ---
RN DISCHARGED NOTES PATIENT DISCHARGED IN STABLE CONDITION. EASILY AROUSABLE. V/S TAKEN, STABLE AND RECORDED. PATIENT'S IV REMOVED AND APPLIED PRESSURE DRESSINGS. SKIN ASSESSMENT DONE AND PICTURES FILED ON CHART. NAME ARM BAND REMOVED. ALL BELONGINGS CHECKED AND SIGNED. HEALTH TEACHINGS/DISCHARGED INSTRUCTIONS GIVEN AND VERBALIZED UNDERSTANDING. PATIENT LEFT UNIT AT 1440 WITH NO ACUTE SIGNS OF DISTRESS. PATIENT WAS ASSISTED TO THE LOBBY BY 2 AMBULANCE STAFF AND FAMILY, GOING TO [facility]. CHARGE NURSE MADE AWARE OF DISCHARGED.
--- NOTE | 2018-10-25 14:45 | NUR ---
RN DISCHARGED NOTES PATIENT DISCHARGED IN STABLE CONDITION. A/O X 3. ABLE TO MAKE NEEDS KNOWN. V/S TAKEN, STABLE AND RECORDED. PATIENT'S IV REMOVED AND APPLIED PRESSURE DRESSINGS. REFUSED SKIN ASSESSMENT/PICTURES. NAME ARM BAND REMOVED. ALL BELONGINGS CHECKED AND SIGNED. HEALTH TEACHINGS/DISCHARGED INSTRUCTIONS GIVEN AND VERBALIZED UNDERSTANDING. PATIENT LEFT UNIT AT 1430 WITH NO ACUTE SIGNS OF DISTRESS. PATIENT WAS ASSISTED TO THE LOBBY BY HOSPITAL STAFF AND FAMILY. CHARGE NURSE MADE AWARE OF DISCHARGED. Addendum: 10/25/18 at 1510 by AISHA CAMPOS RN DISREGARD. DIFFERENT PATIENT
== END 2018-10-25 14:55 | DRG 720 ==
LOC: ER 10:43 → EDSEX 10:43 → TELE 12:04 → MED 10-21 08:29
PROVIDERS: ADMIT Nurse Practitioner Acute Care; ATTEND Student in an Organized Health Care Education/Training Program
DX: A41.51 Sepsis due to Escherichia coli [E. coli] (principal); N17.0 Acute kidney failure with tubular necrosis; G93.41 Metabolic encephalopathy; E44.0 Moderate protein-calorie malnutrition; E87.0 Hyperosmolality and hypernatremia; E87.2 Acidosis; I48.0 Paroxysmal atrial fibrillation; L89.899 Pressure ulcer of other site, unspecified stage; L89.610 Pressure ulcer of right heel, unstageable; R53.2 Functional quadriplegia; D63.8 Anemia in other chronic diseases classified elsewhere; E86.0 Dehydration; E86.1 Hypovolemia; F03.90 Unspecified dementia, unspecified severity, without behavioral disturbance, psychotic disturbance, mood disturbance, and anxiety; Z79.899 Other long term (current) drug therapy; N39.0 Urinary tract infection, site not specified; B96.89 Other specified bacterial agents as the cause of diseases classified elsewhere; Z79.01 Long term (current) use of anticoagulants; Z87.891 Personal history of nicotine dependence; Z74.01 Bed confinement status; L89.890 Pressure ulcer of other site, unstageable; Z74.09 Other reduced mobility; Z66 Do not resuscitate
CPT/HCPCS: 36415; 71045-TC; 80048-TC; 80061-TC; 80076-TC; 80202-TC; 81000-TC; 83605-TC; 83735-TC; 84100-TC; 84132-TC; 84484-TC; 85025-TC; 85730-TC; 87040-TC; 87081-TC; 87086-TC; 87186-TC; 92526; 92611-TC; G0378; J2543; J3370; J3490; J7030; J7040; J7060